=== PATIENT | male | born 2000 | race African-American/Black ===

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

== ENCOUNTER 2020-06-21 08:26 | Day surgery (SDC) | payer OTHER ==
[2020-06-20 11:32] VITALS: BMI 19.1
[2020-06-21] MEDS ORDERED: Midazolam HCl 2 mg/2 ml Vial ONE ×2 (09:30→09:32)
[2020-06-21] MEDS ORDERED: HYDROmorphone 0.5 MG/0.5 ML SYRINGE ONE (09:30)
[2020-06-21] MEDS ORDERED: Bupivacaine PF 0.5% 30 ML VIAL ONE (09:34)
[2020-06-21] MEDS ORDERED: Sodium Chloride 0.9% 10 ML ONE (09:34)
[2020-06-21] MEDS ORDERED: Bacitracin Zinc Ointment 30 gm TUBE ONE (09:34)
[2020-06-21] MEDS ORDERED: PROPOFOL 200 MG/20 ML VIAL ONE (11:42)
[2020-06-21] MEDS ORDERED: Ketorolac Tromethamine 30 MG/ML VIAL ONE ×2 (11:42→11:53)
[2020-06-21] MEDS ORDERED: Ondansetron PF 4 MG/2 ML Vial ONE (11:42)
[2020-06-21] MEDS ORDERED: Dexamethasone 20 MG/5 ML VIAL ONE (11:42)
[2020-06-21] MEDS ORDERED: EPHEDRINE 25 MG/5 ML SYRINGE ONE (11:42)
[2020-06-21] MEDS ORDERED: Lidocaine 1% PF 5 ML VIAL ONE (11:42)
--- NOTE | 2020-06-21 17:28 | RAD ---
XR Wrist Lt 2 View History: Hardware removal Comparison: Radiograph June 13, 2020 Findings: 2 fluoroscopic spot images were obtained. There has been interval removal of the plate and screw fixation distal radius. Impression: Fluoroscopy for surgical use. Total fluoroscopy time: 27 seconds.
--- NOTE | 2020-06-24 13:17 | OP ---
DATE OF PROCEDURE: 06/21/2020 PREOPERATIVE DIAGNOSES: 1. Painful deep implant, left dorsal radius after previous Jaylen Ramírez grafting and plating. 2. Extensor carpi radialis longus and brevis tenosynovitis. POSTOPERATIVE DIAGNOSES: 1. Painful deep implant, left dorsal radius after previous Jaylen Ramírez grafting and plating. 2. Extensor carpi radialis longus and brevis tenosynovitis. PROCEDURE PERFORMED: 1. Left distal radius dorsal aspect removal of plate and screws. 2. C-arm supervision. 3. Extensor tenosynovectomy, extensor carpi radialis longus, extensor carpi radialis brevis, all within the same compartment. SPECIMEN REMOVED: Two plates with screws. TOURNIQUET TIME: Twenty-five minutes. FINDINGS: Stable joint without evidence of subluxation and visualized the joint on the fluoro passively in its full range. 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 DESCRIPTION OF PROCEDURE: After successful general endotracheal anesthesia, the patient came up and the limb prepped and draped. 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 The patient then had the prepped and draped limb undergo time-out, he had a block and so he did not have injection of anesthetic. We carried incision through skin and subcutaneous tissue, using the same dorsal incision that he had before, except only central two-thirds. Once we went through skin and subcutaneous tissue, identified the extensor pollicis longus and protected it, then we entered the compartment of the extensor carpi radialis brevis and longus under which the plate . These tendons were quite a bit irritated and has very thick tenosynovium on the palmar side. We then removed the plate and screws without complication, and visualized the holes and there was no evidence of fracture through the screw holes, and then we did a radical extensor tenosynovectomy of the extensor carpi radialis brevis along using tenotomy scissors, Zachary phillips and Hilary. The patient then had the wound irrigated, Celestone was placed over the tenosynovitis areas of the extensor carpi radialis tendons and then we obtained hemostasis with the tourniquet deflated at approximately 25 minutes of total time. Patient had hemostasis obtained, we closed the retinaculum with an interrupted 2-0 Vicryl in a [id number] pattern. We closed subcutaneous tissue with a running 4-0 Monocryl and then 4-0 nylon interrupted mattress pattern was used to close the epidermis. He left the operating room without evidence of anesthetic or operative complication. Job ID: [id number]
== END 2020-06-21 12:50 | disposition home or self-care (01) ==
LOC: SDC 08:26
PROVIDERS: ATTEND Orthopaedic Surgery Hand Surgery
PROC: 0PPJ04Z Removal of Internal Fixation Device from Left Radius, Open Approach (ICD-10-PCS; principal; 2020-06-21)
PROC: 0LB60ZZ Excision of Left Lower Arm and Wrist Tendon, Open Approach (ICD-10-PCS; principal; 2020-06-21)
DX: T84.84XA Pain due to internal orthopedic prosthetic devices, implants and grafts, initial encounter (principal); M65.88 Other synovitis and tenosynovitis, other site; M19.132 Post-traumatic osteoarthritis, left wrist; M25.332 Other instability, left wrist; M25.839 Other specified joint disorders, unspecified wrist; M24.532 Contracture, left wrist; Z88.5 Allergy status to narcotic agent; Z98.890 Other specified postprocedural states
CPT/HCPCS: 76000; J1100; J1170; J1885; J2250; J2405; J2704; J3490; S0020